=== PATIENT | female | born 1995 | race Caucasian/White ===

== ENCOUNTER 2019-05-12 09:43 | Emergency (ER) | payer OTHER ==
[~2019-05-12] VITALS: Ht 167.6 cm; Wt 136.1 kg
[2019-05-12 10:48] LABS: ABSOLUTE NEUTROPHILS 3.9 thou/uL (1.4-8.2); BASOPHILS 0.8 % (0.0-2.0); EOSINOPHILS 0.5 % (0.0-3.0); HEMATOCRIT 43.5 % (37.0-47.0); HEMOGLOBIN 14.4 gm/dL (12.0-15.0); MCH 28.7 pg (26.0-34.0); MCHC 33.2 g/dL (28.0-37.0); MCV 86.5 fL (80.0-100.0); MONOCYTES 5.7 % (1.0-8.0); PLATELET COUNT 235 thou/uL (150-400); RBC 5.03 mil/uL (4.20-5.00); RDW 13.7 % (10.5-14.5); WBC 6.1 thou/uL (4.0-11.0)
[2019-05-12 11:00] LABS: CALCIUM 9.9 mg/dL (8.5-10.1); CREATININE 0.8 mg/dL (0.6-1.0)
[2019-05-12 11:01] LABS: MAGNESIUM 2.1 mg/dL (1.8-2.4)
[2019-05-12] MEDS ORDERED: VERAPAMIL SR 1120 MG PO (11:10)
[2019-05-12] MEDS ORDERED: COMPAZINE5 M1 PO (11:22)
[2019-05-12 11:39] VITALS: BP 132/74
== END 2019-05-12 11:41 | disposition home or self-care (01) ==
LOC: ER 09:43
PROVIDERS: Emergency Medicine
DX: R11.2 Nausea with vomiting, unspecified (principal); R19.7 Diarrhea, unspecified; F17.210 Nicotine dependence, cigarettes, uncomplicated

== ENCOUNTER 2021-02-06 16:01 | Emergency (ER) | payer OTHER ==
[~2021-02-06] VITALS: Ht 167.6 cm; Wt 133.8 kg
[~2021-02-06 16:01] MED LIST: COMPAZINE5 M1 PO; VERAPAMIL SR 1120 MG PO
[2021-02-06 16:20] LABS: HEMATOCRIT 39.4 % (37.0-47.0); HEMOGLOBIN 13.4 gm/dL (12.0-15.0); MCH 30.2 pg (26.0-34.0); MCV 88.9 fL (80.0-100.0); RBC 4.43 mil/uL (4.20-5.00); RDW 13.4 % (10.5-14.5); WBC 6.9 thou/uL (4.0-11.0)
[2021-02-06 16:28] LABS: CALCIUM 8.9 mg/dL (8.5-10.1); CREATININE 0.8 mg/dL (0.6-1.0)
[2021-02-06 16:34] LABS: URINE BILIRUBIN NEGATIVE (Negative); URINE BLOOD 3+ (Negative); URINE GLUCOSE-RANDOM* NEGATIVE (Negative); URINE KETONES NEGATIVE (Negative); URINE NITRITE-REFLEX NEGATIVE (Negative); URINE PROTEIN (DIPSTICK) TRACE (Negative); URINE SPECIFIC GRAVITY 1.015 (1.005-1.035)
[2021-02-06 16:43] LABS: URINE CLARITY HAZY; URINE COLOR REDDISH; URINE LEUKOCYTES-REFLEX 1+ (Negative)
[2021-02-06 16:45] LABS: SQUAMOUS 0-3 Few /LPF (0-3)
[2021-02-06 16:46] LABS: BACTERIA-REFLEX 1-9 Few /HPF (None Seen); CASTS None Seen /LPF (None Seen); CRYSTALS None Seen /LPF (None Seen); URINE RBC >20 Many /HPF (NONE SEEN); URINE WBC-REFLEX 0-5 Rare /HPF (0-5)
[2021-02-06] MEDS ORDERED: MOBIC7.5 MG PO (17:33)
[2021-02-06] MEDS ORDERED: CARAFATE 1 GM TA1 G1 PO (17:34)
[2021-02-06 17:35] VITALS: BP 145/103
--- NOTE | 2021-02-07 13:39 | EKG ---
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 : 1995 Requested By: Teodora Killian Order Number: [id number] MD: Kb Galaviz Measurements Intervals [place] Rate: 82 P: 56 VA: 145 QRS: 82 QRSD: 91 T: -5 QT: 352 QTc: 411 Interpretive Statements Sinus rhythm Low voltage, precordial leads Borderline T abnormalities, diffuse leads No previous ECG available for comparison Electronically Signed On 02-07-2021 13:39:06 CDT by Kb Galaviz [email or web address] <ELECTRONICALLY SIGNED> By: Kb Galaviz MD, [facility] 02/07/21 1339 1604 1604 Kb Galaviz MD, FACC /EPI
== END 2021-02-06 17:35 | disposition home or self-care (01) ==
LOC: ER 16:01
PROVIDERS: Nurse Practitioner
DX: R07.89 Other chest pain (principal); G43.909 Migraine, unspecified, not intractable, without status migrainosus; K21.9 Gastro-esophageal reflux disease without esophagitis; F41.9 Anxiety disorder, unspecified; F32.9 Major depressive disorder, single episode, unspecified; F17.210 Nicotine dependence, cigarettes, uncomplicated; F12.90 Cannabis use, unspecified, uncomplicated; Z79.899 Other long term (current) drug therapy

== ENCOUNTER 2021-05-31 11:05 | Emergency (ER) | payer OTHER ==
[~2021-05-31] VITALS: Ht 167.6 cm; Wt 131.5 kg
[~2021-05-31 11:05] MED LIST changes: +CARAFATE 1 GM TA1 G1 PO; +MOBIC7.5 MG PO
[2021-05-31 11:47] LABS: ABSOLUTE NEUTROPHILS 4.4 thou/uL (1.4-8.2); BASOPHILS 0.4 % (0.0-2.0); EOSINOPHILS 0.4 % (0.0-3.0); HEMATOCRIT 41.2 % (37.0-47.0); HEMOGLOBIN 14.1 gm/dL (12.0-15.0); LYMPHOCYTES 28.6 % (24.0-44.0); MCH 30.1 pg (26.0-34.0); MCHC 34.1 g/dL (28.0-37.0); MCV 88.4 fL (80.0-100.0); MONOCYTES 4.6 % (1.0-8.0); PLATELET COUNT 241 thou/uL (150-400); RBC 4.66 mil/uL (4.20-5.00); RDW 13.2 % (10.5-14.5); WBC 6.7 thou/uL (4.0-11.0)
[2021-05-31 11:50] LABS: CALCIUM 8.6 mg/dL (8.5-10.1); POTASSIUM 3.7 mmol/L (3.5-5.1)
[2021-05-31 12:00] LABS: ALBUMIN 3.8 g/dL (3.4-5.0); MAGNESIUM 2.1 mg/dL (1.8-2.4); TOTAL BILIRUBIN 0.3 mg/dL (0.2-1.0); TOTAL PROTEIN 7.2 g/dL (6.4-8.2)
[2021-05-31 12:01] LABS: URINE BILIRUBIN NEGATIVE (Negative); URINE BLOOD NEGATIVE (Negative); URINE CLARITY CLEAR; URINE COLOR YELLOW; URINE GLUCOSE-RANDOM* NEGATIVE (Negative); URINE KETONES NEGATIVE (Negative); URINE LEUKOCYTES-REFLEX NEGATIVE (Negative); URINE NITRITE-REFLEX NEGATIVE (Negative); URINE PROTEIN (DIPSTICK) NEGATIVE (Negative)
[2021-05-31 12:09] LABS: AMP/METHAMP Negative (Negative); BARBITURATES Negative (Negative); BENZODIAZEPINES Negative (Negative); COCAINE Negative (Negative); METHADONE Negative (Negative); OPIATES Negative (Negative); PCP Negative (Negative)
--- NOTE | 2021-05-31 12:30 | EKG ---
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 : 1995 Requested By: Mayela Aguiar Order Number: [id number] MD: Kb Galaviz Measurements Intervals [place] Rate: 108 P: 51 [place]: 168 QRS: 34 QRSD: 91 T: 13 QT: 329 QTc: 441 Interpretive Statements Sinus tachycardia Compared to ECG 02/06/2021 16:04:46 Sinus rhythm no longer present T-wave abnormality no longer present Electronically Signed On 05-31-2021 12:30:32 INVENTORY ACCOUNTANT by Kb Galaviz [email or web address] <ELECTRONICALLY SIGNED> By: Kb Galaviz MD, [facility] 05/31/21 1230 1110 1110 Kb Galaviz MD, FACC /EPI
[2021-05-31 12:38] VITALS: BP 149/87
== END 2021-05-31 12:41 | disposition home or self-care (01) ==
LOC: ER 11:05
PROVIDERS: Physician Assistant
DX: R00.2 Palpitations (principal); F41.9 Anxiety disorder, unspecified; F32.9 Major depressive disorder, single episode, unspecified; F17.210 Nicotine dependence, cigarettes, uncomplicated; Z79.899 Other long term (current) drug therapy